=== PATIENT | male | born 1970 | race American Indian/Alaskan Native ===

== ENCOUNTER 2017-03-19 23:14 | Emergency (ER) | payer OTHER ==
[2017-03-19] MEDS ORDERED: Aspirin 325 mg EC Tablets PO STA (23:56)
[2017-03-20] MEDS ORDERED: Aspirin 325 mg EC Tablets PO ONE (00:18)
[2017-03-20 00:46] LABS: BASO # 0.1 K/uL (0.0-0.2); BASO % 1.4 % (0.0-2.0); EOS # 0.1 K/uL (0.0-0.7); HEMATOCRIT 37.8 % (35.0-51.0); LYMPH # 1.6 K/uL (1.0-4.3); MEAN CELL VOLUME 85.7 fL (80.0-94.0); MEAN CORPUSCULAR HEMOGLOBIN 29.3 pg (27.0-31.0); MEAN CORPUSCULAR HGB CONC 34.2 g/dL (33.0-37.0); MEAN PLATELET VOLUME 7.8 fL (7.2-11.7); MONO # 0.3 K/uL (0.0-0.8); MONO % 6.1 % (0.0-10.0); NRBC % 0.1 % (0.0-2.0); RED CELL DISTRIBUTION WIDTH 15.6 % (11.5-14.5); WHITE BLOOD COUNT 5.6 K/uL (4.8-10.8)
[2017-03-20 00:51] LABS: CHLORIDE 102 mmol/L (98-107)
[2017-03-20 00:52] LABS: SODIUM 134 mmol/L (132-148)
[2017-03-20 00:54] LABS: AST/SGOT 43 U/L (17-59); CARBON DIOXIDE 25 mmol/L (22-30); GFR AFRICAN-AMERICAN > 60
[2017-03-20 00:55] LABS: ALKALINE PHOSPHATASE 65 U/L (38-126); ALT/SGPT 50 U/L (21-72); BLOOD UREA NITROGEN 8 mg/dL (9-20); CALCIUM 8.7 mg/dl (8.6-10.4); GLUCOSE,RANDOM 103 mg/dL (75-110)
--- NOTE | 2017-03-20 01:15 | C.PDOC ---
History Of Present Illness 46 year old male presents to the ED due to vague chest discomfort that the patient felt all day. Patient has be unable to sleep due to the anxiety due to the chest discomfort. Patient denies SOB, nausea, vomit. Time Seen by Provider: 03/19/17 23:49 Chief Complaint (Nursing): Chest Pain History Per: Patient History/Exam Limitations: no limitations Onset/Duration Of Symptoms: Hrs Current Symptoms Are (Timing): Still Present Quality: Other (Discomfort) Associated Symptoms: denies: Nausea, Diaphoresis, Syncope Modifying Factors: None Exacerbating Factors: None Alleviating Factors: None Recent travel outside of the [place]: No Past Medical History Reviewed: Historical Data, Nursing Documentation, Vital Signs Vital Signs: Last Vital Signs Temp 98.5 F 03/20/17 01:29 Pulse 79 03/20/17 01:29 Resp 16 03/20/17 01:29 BP 106/66 03/20/17 01:29 Pulse Ox 98 03/20/17 04:44 - Medical History PMH: Depression Surgical History: No Surg Hx Family History: States: No Known Family Hx - Social History Hx Tobacco Use: No Hx Alcohol Use: Yes Hx Substance Use: No - Immunization History Hx Tetanus Toxoid Vaccination: No Hx Influenza Vaccination: No Hx Pneumococcal Vaccination: No Review Of Systems Constitutional: Positive for: Other (Muscular, obese) Cardiovascular: Positive for: Chest Pain. Negative for: Palpitations, Light Headedness Respiratory: Negative for: Shortness of Breath Gastrointestinal: Negative for: Nausea, Vomiting Psych: Positive for: Anxiety (Due to chest discomfort) Physical Exam - Physical Exam Appears: Non-toxic, No Acute Distress, Other (Muscular, obese black man) Skin: Normal Color, Warm, Dry Head: Atraumatic, Normacephalic Oral Mucosa: Moist Neck: Normal, Supple Chest: Symmetrical, No Tenderness Cardiovascular: Rhythm Regular Respiratory: Normal Breath Sounds, No Rales, No Rhonchi, No Wheezing Gastrointestinal/Abdominal: Soft, No Tenderness Neurological/Psych: Oriented x3, Normal Speech, Normal Cognition ED Course And Treatment - Laboratory Results Result Diagrams: 03/20/17 00:36 03/20/17 00:36 Lab Interpretation: Normal (trop neg.) ECG: Interpreted By Md ECG Rhythm: Sinus Rhythm ECG Interpretation: Normal Rate From EC O2 Sat by Pulse Oximetry: 98 (Room air) Pulse Ox Interpretation: Normal - Radiology CXR: Interpreted by Me CXR Interpretation: Yes: No Acute Disease Progress Note: xanax, ASA (took [employer]) Reevaluation Time: 01:14 Reassessment Condition: Improved Medical Decision Making Medical Decision Making: anxiety LOW susp of ACS, normal ekg and labs, LOW susp of PE, normal sat, normal rate EKG, no leg edema Symptoms improved with Xanax. Reassured. Disposition Doctor Will See Patient In The: Office Counseled Patient/Family Regarding: Studies Performed, Diagnosis - Disposition Referrals: [facility] [Outside] [facility] [Outside] Disposition: HOME/ ROUTINE Disposition Time: 01:15 Condition: GOOD Additional Instructions: normal eval Consider anxiety Follow-up in our outpatient Clinic as needed. Instructions: Thoracic Pain (ED), Anxiety (ED) Forms: [facility] ([place]) - Clinical Impression Clinical Impression: Chest discomfort - Scribe Statement The provider has reviewed the documentation as recorded by the Scribe Ramy Payne All medical record entries made by the Scribe were at my direction and personally dictated by me. I have reviewed the chart and agree that the record accurately reflects my personal performance of the history, physical exam, medical decision making, and the department course for this patient. I have also personally directed, reviewed, and agree with the discharge instructions and disposition.
[2017-03-20 01:30] VITALS: BP 106/66; PULSE 79; RESP 16; TEMP 98.5
[2017-03-20 04:37] VITALS: O2SAT 98
--- NOTE | 2017-03-20 12:47 | RAD ---
PROCEDURE: CHEST RADIOGRAPH, 1 VIEW Technique: Single view portable semi erect @ 00:06 HISTORY: chest pain COMPARISON: None available. FINDINGS: LUNGS: Clear. PLEURA: No pneumothorax or pleural fluid seen. CARDIOVASCULAR: No radiographic findings to suggest acute or significant cardiovascular disease. OSSEOUS STRUCTURES: No significant abnormalities. VISUALIZED UPPER ABDOMEN: Normal. OTHER FINDINGS: None. IMPRESSION: No active disease. Concordant results with the preliminary interpretation rendered by the emergency department physician procedure.
--- NOTE | 2017-03-27 17:12 | CARD ---
APPROVED REPORT EKG Measurement Heart [id number] <Conclusion> Poor data quality, interpretation may be adversely affected Normal sinus rhythm T wave abnormality, consider inferior ischemia Abnormal ECG
== END 2017-03-20 01:30 | disposition home or self-care (01) ==
LOC: C.ER 23:14
DX: R07.89 Other chest pain (principal)

== ENCOUNTER 2017-08-13 00:20 | Emergency (ER) | payer OTHER ==
--- NOTE | 2017-08-13 01:05 | C.PDOC ---
History Of Present Illness 46 y/o male presents to ED with complaints of headache. Patient states associated symptoms include tingling in hands, lightheadedness, sore throat and ear pain. Patient states he went to the clinic yesterday and he was given augmentin. Denies chest pain, SOB, abdominal pain, vomiting or diarrhea. Time Seen by Provider: 08/13/17 00:30 Chief Complaint (Nursing): Headache History Per: Patient History/Exam Limitations: no limitations Onset/Duration Of Symptoms: Hrs Current Symptoms Are (Timing): Still Present Preceeding Symptoms: None Associated Symptoms: denies: Photophobia, Blurred Vision, Nausea, Vomiting, Extremity Weakness Recent travel outside of the [place]: No Past Medical History Reviewed: Historical Data, Nursing Documentation, Vital Signs Vital Signs: Last Vital Signs Temp 98.4 F 08/13/17 00:34 Pulse 60 08/13/17 01:59 Resp 22 08/13/17 01:59 BP 139/77 08/13/17 01:59 Pulse Ox 97 08/13/17 02:27 - Medical History PMH: Anxiety, Depression, HTN Family History: States: No Known Family Hx - Social History Hx Tobacco Use: No Hx Alcohol Use: Yes Hx Substance Use: No - Immunization History Hx Tetanus Toxoid Vaccination: No Hx Influenza Vaccination: No Hx Pneumococcal Vaccination: No Review Of Systems Constitutional: Negative for: Fever, Chills ENT: Positive for: Ear Pain, Other (sore throat ) Cardiovascular: Negative for: Chest Pain, Palpitations Respiratory: Negative for: Shortness of Breath Gastrointestinal: Negative for: Nausea, Vomiting, Abdominal Pain, Diarrhea Neurological: Positive for: Headache, Other (lightheadedness; tingling in hands) . Negative for: Weakness, Numbness Physical Exam - Physical Exam Appears: Non-toxic, No Acute Distress, Other (Anxious ) Skin: Normal Color, Warm, Dry Head: Atraumatic, Normacephalic Eye(s): bilateral: Normal Inspection, PERRL Ear(s): Bilateral: Normal Oral Mucosa: Moist Throat: Normal, No Erythema, No Exudate Neck: Supple Chest: Symmetrical, No Tenderness Cardiovascular: Rhythm Regular Respiratory: Normal Breath Sounds, No Decreased Breath Sounds, No Rales, No Rhonchi, No Wheezing Gastrointestinal/Abdominal: Soft, No Tenderness, No Distention, No Guarding, No Rebound Extremity: Normal ROM, No Pedal Edema, No Deformity, No Swelling Neurological/Psych: Oriented x3, Normal Speech, Normal Cognition ED Course And Treatment - Laboratory Results Result Diagrams: 08/13/17 01:17 08/13/17 01:31 O2 Sat by Pulse Oximetry: 97 (RA) Pulse Ox Interpretation: Normal Medical Decision Making Medical Decision Making: Ordered blood work. Administered Tylenol. Disposition Counseled Patient/Family Regarding: Studies Performed, Diagnosis, Need For Followup - Disposition Referrals: [facility] [Outside] Disposition: HOME/ ROUTINE Disposition Time: 02:40 Condition: STABLE Additional Instructions: FOLLOW UP WITH YOUR DOCTOR IN 1-2 DAYS RETURN TO ER IF SYMPTOMS WORSEN Forms: [facility] (German), General Discharge Instructions Print Language: SAMI - POA Present On Arrival: None - Clinical Impression Clinical Impression: Headache - Scribe Statement The provider has reviewed the documentation as recorded by the Scribe Ralph Pelletier All medical record entries made by the Scribe were at my direction and personally dictated by me. I have reviewed the chart and agree that the record accurately reflects my personal performance of the history, physical exam, medical decision making, and the department course for this patient. I have also personally directed, reviewed, and agree with the discharge instructions and disposition.
[2017-08-13 01:21] LABS: BASO # 0.1 K/uL (0.0-0.2); BASO % 1.1 % (0.0-2.0); EOS # 0.1 K/uL (0.0-0.7); EOS % 1.5 % (0.0-4.0); HEMOGLOBIN 13.3 g/dL (12.0-18.0); LYMPH # 2.2 K/uL (1.0-4.3); MEAN CELL VOLUME 85.3 fL (80.0-94.0); MEAN PLATELET VOLUME 7.6 fL (7.2-11.7); MONO # 0.5 K/uL (0.0-0.8); MONO % 8.8 % (0.0-10.0); NEUT % 51.6 % (50.0-75.0); RBC 4.58 Mil/uL (4.40-5.90); RED CELL DISTRIBUTION WIDTH 15.1 % (11.5-14.5); WHITE BLOOD COUNT 5.9 K/uL (4.8-10.8)
[2017-08-13 01:46] LABS: CALCIUM 8.3 mg/dl (8.6-10.4); GFR AFRICAN-AMERICAN > 60; GFR NON-AFRICAN AMERICAN > 60
[2017-08-13 01:47] LABS: ALB/GLOB RATIO 1.1 (1.0-2.1); ALBUMIN 3.9 g/dL (3.5-5.0); ALT/SGPT 64 U/L (21-72); AST/SGOT 46 U/L (17-59); BLOOD UREA NITROGEN 11 mg/dL (9-20)
[2017-08-13 02:00] VITALS: PULSE 60
[2017-08-13 02:55] VITALS: BP 130/70; RESP 20; TEMP 97.5; O2SAT 100
== END 2017-08-13 02:55 | disposition home or self-care (01) ==
LOC: C.ER 00:20
DX: R51 Headache (principal); I10 Essential (primary) hypertension

== ENCOUNTER 2018-05-08 09:43 | Emergency (ER) | payer OTHER ==
[2018-05-08] MEDS ORDERED: Aspirin 325 mg EC Tablets PO STA (10:29)
--- NOTE | 2018-05-08 10:52 | RAD ---
Date of service: 05/08/2018 HISTORY: SOB COMPARISON: Comparison chest 03/20/2017 TECHNIQUE: Chest PA and lateral FINDINGS: LUNGS: No active pulmonary disease. PLEURA: No significant pleural effusion identified. No pneumothorax apparent. CARDIOVASCULAR: No aortic atherosclerotic calcification present. Normal cardiac size. No pulmonary vascular congestion. OSSEOUS STRUCTURES: No significant abnormalities. VISUALIZED UPPER ABDOMEN: Normal. OTHER FINDINGS: None. IMPRESSION: No active disease.
[2018-05-08 11:00] LABS: BASO # 0.1 K/uL (0.0-0.2); BASO % 1.2 % (0.0-2.0); EOS # 0.1 K/uL (0.0-0.7); HEMOGLOBIN 12.7 g/dL (12.0-18.0); LYMPH # 1.7 K/uL (1.0-4.3); LYMPH % 34.4 % (20.0-40.0); MEAN CELL VOLUME 85.4 fL (80.0-94.0); MEAN CORPUSCULAR HEMOGLOBIN 28.5 pg (27.0-31.0); MEAN CORPUSCULAR HGB CONC 33.3 g/dL (33.0-37.0); MEAN PLATELET VOLUME 7.6 fL (7.2-11.7); MONO # 0.4 K/uL (0.0-0.8); MONO % 8.5 % (0.0-10.0); NEUT # 2.6 K/uL (1.8-7.0); NEUT % 52.9 % (50.0-75.0); NRBC % 0.1 % (0.0-2.0); RBC 4.46 Mil/uL (4.40-5.90); RED CELL DISTRIBUTION WIDTH 14.8 % (11.5-14.5); WHITE BLOOD COUNT 4.8 K/uL (4.8-10.8)
[2018-05-08 11:13] LABS: ALB/GLOB RATIO 1.3 (1.0-2.1); ALBUMIN 4.1 g/dL (3.5-5.0); BLOOD UREA NITROGEN 14 mg/dL (9-20); CALCIUM 8.7 mg/dl (8.6-10.4); GFR NON-AFRICAN AMERICAN > 60
[2018-05-08 11:15] LABS: ALT/SGPT 55 U/L (21-72); AST/SGOT 55 U/L (17-59)
[2018-05-08 11:16] LABS: PARTIAL THROMBOPLASTIN TIME 30 SECONDS (21-34)
[2018-05-08 11:19] LABS: D DIMER < 200 ng/mlDDU (0-243)
[2018-05-08 11:25] LABS: B-TYPE NATRIURETIC PEPTIDE 13.6 pg/mL (0-450)
[2018-05-08 11:40] LABS: SQUAMOUS EPITHIAL 1 /hpf (0-5); URINE BILIRUBIN NEGATIVE (NEGATIVE); URINE BLOOD NEGATIVE (NEGATIVE); URINE CLARITY Clear (Clear); URINE COLOR Yellow (YELLOW); URINE GLUCOSE (UA) NORMAL (Normal); URINE LEUKOCYTE ESTERASE NEG Leu/uL (Negative); URINE PROTEIN 2+ mg/dL (NEGATIVE); URINE UROBILINOGEN NORMAL mg/dL (0.2-1.0)
--- NOTE | 2018-05-08 11:48 | C.PDOC ---
History Of Present Illness 47 years old male presents to ED for complaints of vague left upper chest discomfort that began last night. Patient states symptoms feel like "water is falling on his chest." Patient reports unlimited exercise tolerance and that he exercises regularly without any chest pain or discomfort. Denies SOB, nausea, vomiting, or any other complaints. Time Seen by Provider: 05/08/18 10:21 Chief Complaint (Nursing): Palpitations History Per: Patient History/Exam Limitations: no limitations Onset/Duration Of Symptoms: Hrs Current Symptoms Are (Timing): Still Present Recent travel outside of the [place]: No Past Medical History Reviewed: Historical Data, Nursing Documentation, Vital Signs Vital Signs: Last Vital Signs Temp 98.6 F 05/08/18 09:54 Pulse 63 05/08/18 11:25 Resp 18 05/08/18 11:25 BP 118/60 05/08/18 11:25 Pulse Ox 98 05/08/18 11:25 - Medical History PMH: Anxiety, Depression, HTN Family History: States: No Known Family Hx - Social History Hx Tobacco Use: No Hx Alcohol Use: Yes Hx Substance Use: No - Immunization History Hx Tetanus Toxoid Vaccination: No Hx Influenza Vaccination: No Hx Pneumococcal Vaccination: No Review Of Systems Constitutional: Negative for: Fever, Chills Cardiovascular: Positive for: Other (Left upper chest discomfort ) Respiratory: Negative for: Shortness of Breath Gastrointestinal: Negative for: Nausea, Vomiting, Abdominal Pain, Diarrhea Skin: Negative for: Rash Neurological: Negative for: Weakness, Numbness Physical Exam - Physical Exam Appears: Well, Non-toxic, No Acute Distress Skin: Normal Color, Warm, Dry, No Rash Head: Atraumatic, Normacephalic Eye(s): bilateral: Normal Inspection, PERRL, EOMI Oral Mucosa: Moist Neck: Normal ROM, Supple Chest: Symmetrical (No positional or reproducible left upper chest pain), No Tenderness Cardiovascular: Rhythm Regular Respiratory: Normal Breath Sounds, No Rales, No Rhonchi, No Wheezing Gastrointestinal/Abdominal: Normal Exam, Bowel Sounds (Active ), Soft, No Tenderness, No Distention Extremity: Normal ROM, No Pedal Edema Extremity: Bilateral: Atraumatic, Normal Color And Temperature, Normal ROM Pulses: Left Radial: Normal, Right Radial: Normal Neurological/Psych: Oriented x3, Normal Speech Gait: Steady ED Course And Treatment - Laboratory Results Result Diagrams: 05/08/18 10:53 05/08/18 10:53 Lab Interpretation: Normal (trop/bnp/d-dimer neg.) ECG: Interpreted By Me ECG Rhythm: Sinus Rhythm ECG Interpretation: Normal Rate From EC O2 Sat by Pulse Oximetry: 98 (RA) Pulse Ox Interpretation: Normal - Radiology CXR: Interpreted by Me CXR Interpretation: Yes: No Acute Disease - Other Rad CXR X-Ray: Viewed By Me, Read By Radiologist Interpretation: IMPRESSION: No active disease. Medical Decision Making Medical Decision Making: Plan: * Xanax * Aspirin * CXR * EKG * Blood work * Urinalysis vague L upper chest discomfort unlimited exercise tolerance, very large and muscular athletic build normal w/u. bizarre description of chest discomfort suggest anxiety s/s improved with Xanax PO Disposition Doctor Will See Patient In The: Office Counseled Patient/Family Regarding: Studies Performed, Diagnosis - Disposition Referrals: [employer] [facility] [Outside] [facility] [Outside] [facility] [Outside] [facility] [Outside] Disposition: HOME/ ROUTINE Disposition Time: 12:00 Condition: GOOD Additional Instructions: protonix daily take in AM GERD diet hygiene outpatient follow-up in our outpatient Clinic as needed. Prescriptions: Pantoprazole [Protonix] 40 mg PO DAILY #30 ect Instructions: Chest Pain, Acid Reflux (Gastroesophageal Reflux Disease), Adult (DC), Anxiety, Adult (DC) Forms: [employer] (Turkmen) - POA Present On Arrival: None - Clinical Impression Clinical Impression: Chest discomfort, Anxiety about health - Scribe Statement The provider has reviewed the documentation as recorded by the Jennifer Pelletier All medical record entries made by the Wilmaibiraida were at my direction and pers onally dictated by me. I have reviewed the chart and agree that the record accurately reflects my personal performance of the history, physical exam, medical decision making, and the department course for this patient. I have also personally directed, reviewed, and agree with the discharge instructions and disposition.
[2018-05-08 11:50] LABS: BARBITURATES, UR NEGATIVE (NEGATIVE); BENZODIAZEPINES, UR NEGATIVE (NEGATIVE); OPIATES, UR NEGATIVE (NEGATIVE); PHENCYCLIDINE, UR NEGATIVE (NEGATIVE)
[2018-05-08 12:26] VITALS: BP 116/59; PULSE 62; RESP 16; TEMP 98.5
[2018-05-08 13:50] VITALS: O2SAT 98
--- NOTE | 2018-05-09 17:15 | CARD ---
APPROVED REPORT Date of service: 05/08/2018 EKG Measurement Heart [id number] ID [id number] <Conclusion> Normal sinus rhythm Inferior infarct, age undetermined Abnormal ECG
== END 2018-05-08 12:20 | disposition home or self-care (01) ==
LOC: C.ER 09:43
DX: R07.89 Other chest pain (principal); F41.9 Anxiety disorder, unspecified; I10 Essential (primary) hypertension